=== PATIENT | male | born 1960 | race Caucasian/White ===

== ENCOUNTER 2025-02-11 08:23 | Emergency (ER) | payer MEDICAID ==
[~2025-02-11] VITALS: Ht 170.2 cm; Wt 53.9 kg
[2025-02-11 08:31] VITALS: BP 166/82; PULSE 98; O2SAT 100
--- NOTE | 2025-02-11 09:14 | RADIOLOGY REPORT ---
PROCEDURE: Right shoulder radiographs. INDICATION: Shoulder Pain TECHNIQUE: 3 views of the shoulder were obtained. COMPARISON: None FINDINGS: There is no evidence of fracture or dislocation. Joint spaces are maintained. The soft tissues are unremarkable. IMPRESSION: 1. No fracture or dislocation.
--- NOTE | 2025-02-11 10:19 | Physician Documentation ---
History of Present Illness ~ Chief Complaint: Shoulder pain Stated Complaint: SHOULDER PAIN Time Seen by MD: 09:19 HPI The patient is seen today with complaints of right-sided shoulder pain. Patient states he tripped last night and fell into a telephone pole hitting his right shoulder. Patient has no other concern or complaint at this time. He denies any neck pain or back pain. Medication Reconciliation Allergies: Coded Allergies: codeine (Verified Allergy, Unknown, 02/11/25) Scheduled Ibuprofen (Ibuprofen), 1 TAB PO Q8H Scheduled PRN Acetaminophen (Tylenol Extra Strength), 2 TAB PO Q6H PRN PRN for pain or fever Review of Systems Constitutional: Denies: chills, fever, weakness Eyes: Denies: pain, blurred vision ENT: Denies: ear pain, nose pain, throat pain, mouth pain Respiratory: Denies: cough, shortness of breath Cardiovascular: Denies: chest pain, palpitations Gastrointestinal: Denies: abdominal pain, nausea, vomiting Genitourinary: Denies: burning, dysuria Male Genitalia: Denies: penile discharge, testicular pain Neurological: Denies: headache, dizziness Musculoskeletal: Denies: pain, swelling Integumentary: Denies: rash, lesions Allergic/Immunologic: Denies: hives, itching Hematologic/Lymphatic: Denies: no symptoms reported Psychiatric: Denies: depression, anxiety Physical Exam Vital Signs: Temperature: 97.8, Source: Temporal, Heart Rate: 98, Respiratory Rate: 16, BP: 166/82, Pulse Oximetry: 100, Weight: 53.900 Physical Exam General: Awake and Alert, no acute distress. HEENT: Conjunctiva pink, Sclera clear, Mucus Membranes moist. Neck: Supple without masses and tenderness. Resp: Unlabored. Lungs clear to auscultation bilaterally. Heart: Regular Rate and rhythm, normal S1 and S2 without murmur, rub or gallop. Musculoskeletal: Patient on exam does have tenderness to palpation of the right anterior shoulder. Patient has significant decreased range of motion passive and active range of motion. Patient is neurovascularly intact distally. Motor function and strength intact distally. Extremities: No cyanosis,clubbing or edema. Skin: Warm and Dry. Progress Results/Orders Results/Orders Completed Orders - RJ MCKEON Ketorolac Trometh 30mg/Ml Vial (Toradol (02/11/25 10:13) Acetaminophen 325mg Tablet (Tylenol Tabl (02/11/25 10:13) Medications Received in ER Medications (Trade) Dose Ordered Sig/Melvi Route PRN Reason Start Time Stop Time Status Last Admin Dose Admin (Toradol inj. 30mg/ml) 15 mg ONCE STAT IM 02/11/25 10:13 02/11/25 10:18 DC 02/11/25 10:22 15 MG (Tylenol tablet) 650 mg ONCE STAT PO 02/11/25 10:13 02/11/25 10:18 DC 02/11/25 10:22 650 MG Vital Signs 02/11/25 02/11/25 08:31 10:22 Temp 97.8 Pulse 98 Resp 16 14 B/P (MAP) 166/82 Pulse Ox 100 EKG/XRAY/CT/US/VASC/MRI Bone/Soft Tissue X-Ray (Ext.) : Additional Comment X-ray of right shoulder interpreted by myself today shows no sign of acute fracture or dislocation, bones in anatomic alignment, no osteolytic or blastic lesions. DIAGNOSTIC RADIOLOGY Patient: GURDEEP VILLEGAS JR Medical Record: [id number] [facility] : 1960, Age: 64 Sex: Male Location: ER Patient Status: REG ER Service Date/Time: 02/11/25841 Ordering Physician: RICARDO HORNER MD Exam: SHOULDER, COMPLETE (MIN 2 VWS) PROCEDURE: Right shoulder radiographs. INDICATION: Shoulder Pain TECHNIQUE: 3 views of the shoulder were obtained. COMPARISON: None FINDINGS: There is no evidence of fracture or dislocation. Joint spaces are maintained. The soft tissues are unremarkable. IMPRESSION: 1. No fracture or dislocation. Electronically Signed by:JEAN AG MD Date & Time: 02/11/25910 Dictated by: JEAN AG MD Dictation date and time: 02/11/25 0859 Primary Care Provider: NO PRIMARY CARE PROVIDER cc: RICARDO HORNER MD ~ Medical Decision Making Findings The patient is seen today with complaints of right-sided shoulder pain. Patient states he tripped last night and fell into a telephone pole hitting his right shoulder. Patient has no other concern or complaint at this time. He denies any neck pain or back pain. Patient did have x-ray taken of right shoulder that showed no acute injury and no fracture. Patient was given Toradol 15 mg IM in the ED today along with Tylenol 650 mg by mouth. Patient will follow up in 3-5 days with primary care for referral to physical therapy or orthopedist if no better or as needed sooner. Return to ED with any worsening, concerning or changing symptoms. Patient was given prescriptions for Tylenol ibuprofen at home to be taken with food. Departure Disposition: / SELF CARE / HOMELESS Impression: Primary Impression: Shoulder pain Qualified Codes: M25.511 - Pain in right shoulder Condition: Improved Discharge Instructions: Shoulder Pain Additional Instructions: Patient did have x-ray taken of right shoulder that showed no acute injury and n o fracture. Patient was given Toradol 15 mg IM in the ED today along with Tylenol 650 mg by mouth. Patient will follow up in 3-5 days with primary care for referral to physical therapy or orthopedist if no better or as needed sooner. Return to ED with any worsening, concerning or changing symptoms. Patient was given prescriptions for Tylenol ibuprofen at home to be taken with f ood. Departure Forms: Excuse form Work or School Excused From: Work Excuse beginning now through the following date: Feb 13, 2025 Referrals: NO PRIMARY CARE PROVIDER (PCP) Prescriptions Acetaminophen (Tylenol Extra Strength) 500 Mg Tablet 2 TAB PO Q6H PRN PRN for pain or fever for 7 Days, #56 TAB Prov: RJ MCKEON 02/11/25 Ibuprofen (Ibuprofen) 800 Mg Tablet 1 TAB PO Q8H for pain for 10 Days, #30 TAB 0 Refills Prov: RJ MCKEON 02/11/25 Signature Scribe Signature: No scribe Attestation: No scribe RJ MCKEON Feb 11, 2025 10:19
[2025-02-11 10:22] VITALS: RESP 14
[2025-02-11] MEDS: ketorolac trometh 30MG/ML vial 30 MG/ML VIAL IM STA (10:22)
[2025-02-11] MEDS ORDERED: ACET-1025 PO (10:23)
[2025-02-11] MEDS ORDERED: IBUP-1986 PO (10:23)
[2025-02-11 10:30] VITALS: TEMP 97.8
== END 2025-02-11 10:32 | disposition home or self-care (01) ==
LOC: ER 08:24
DX: M25.511 Pain in right shoulder (principal); Z88.5 Allergy status to narcotic agent; W01.0XXA Fall on same level from slipping, tripping and stumbling without subsequent striking against object, initial encounter; Y93.89 Activity, other specified; Y92.89 Other specified places as the place of occurrence of the external cause; Y99.8 Other external cause status
CPT/HCPCS: 73030; 96372; 99284; J1885